=== PATIENT | female | born 1990 | race Caucasian/White ===

== ENCOUNTER 2021-04-08 12:30 | Outpatient (CLI) | payer MEDICAID | END 2021-04-08 12:31 | disposition home or self-care (01) | LOC: BICCT 12:30 | PROVIDERS: ATTEND Student in an Organized Health Care Education/Training Program | DX: R22.1 Localized swelling, mass and lump, neck (principal) | CPT/HCPCS: 70491 ==

== ENCOUNTER 2021-07-06 06:08 | Day surgery (SDC) | payer OTHER ==
[2021-07-01 14:32] VITALS: BMI 35.7
[2021-07-06] MEDS ORDERED: Meperidine HCl/PF 25 MG/ML VIAL ONE ×2 (06:28→08:17)
[2021-07-06] MEDS ORDERED: Famotidine/PF 20 mg/2ml Vial ONE (06:28)
[2021-07-06] MEDS ORDERED: Fentanyl 100 MCG/2 ML VIAL ONE ×2 (06:28→08:35)
[2021-07-06] MEDS ORDERED: Ondansetron PF 4 MG/2 ML Vial ONE (07:34)
[2021-07-06] MEDS ORDERED: Metoclopramide HCl 10 MG/2 ML VIAL ONE (07:34)
[2021-07-06] MEDS ORDERED: Ketorolac Tromethamine 30 MG/ML VIAL ONE (07:34)
[2021-07-06] MEDS ORDERED: Dexamethasone 20 MG/5 ML VIAL ONE (07:34)
[2021-07-06] MEDS ORDERED: PROPOFOL 200 MG/20 ML VIAL ONE (07:34)
[2021-07-06] MEDS ORDERED: Lidocaine 1% PF 5 ML VIAL ONE (07:34)
[2021-07-06] MEDS ORDERED: HYDROcodone/Acetaminophen 5/325 mg Tablet ONE (09:22)
== END 2021-07-06 10:03 | disposition home or self-care (01) ==
LOC: SDC 06:08
PROVIDERS: ATTEND Student in an Organized Health Care Education/Training Program
PROC: 0CTPXZZ Resection of Tonsils, External Approach (ICD-10-PCS; principal; 2021-07-06)
DX: J03.91 Acute recurrent tonsillitis, unspecified (principal); J35.01 Chronic tonsillitis; J30.9 Allergic rhinitis, unspecified; Z79.899 Other long term (current) drug therapy
CPT/HCPCS: 88304; J1100; J1885; J2175; J2405; J2704; J2765; J3010; S0028

== ENCOUNTER 2022-02-22 11:00 | Outpatient (CLI) | payer OTHER | END 2022-02-22 11:01 | disposition home or self-care (01) | LOC: PET 11:00 | PROVIDERS: ATTEND Family Medicine | DX: R22.2 Localized swelling, mass and lump, trunk (principal) | CPT/HCPCS: 78815; A9552 ==

== ENCOUNTER 2022-10-04 18:01 | Emergency (ER) | payer OTHER ==
[2022-10-04] MEDS ORDERED: Enoxaparin Sodium 100 MG/ML SYRINGE ONE (18:37)
[2022-10-04] MEDS ORDERED: Meclizine HCl 25 MG TAB ONE (18:37)
[2022-10-04] MEDS ORDERED: Metoclopramide HCl 10 MG/2 ML VIAL ONE (18:37)
[2022-10-04] MEDS ORDERED: Ketorolac Tromethamine 30 MG/ML VIAL ONE (18:37)
[2022-10-04] MEDS ORDERED: Dexamethasone 10 MG/ML VIAL ONE (18:37)
[2022-10-04 19:52] LABS: #Basophils 0.1 thou/uL (0.0-0.2); #Eosinphils 0.1 thou/uL (0.0-0.7); #Monocytes 0.6 thou/uL (0.11-0.59); #Neutrophils 6.8 thou/uL (1.40-6.50); %Basophils 0.9 % (0.0-1.0); %Eosinophils 1.3 % (0.0-10.0); %Lymphocytes 28.1 % (21.0-51.0); %Monocytes 5.6 % (0.0-10.0); Hemoglobin 13.5 g/dL (12.0-16.0); Mean Corpuscular HGB CONC 33.7 g/dL (32.0-36.0); Mean Corpuscular Volume 95.2 fl (78.0-98.0); Mean Platelet Volume 6.4 fL (7.4-10.4); Platelet Count 298 10x3/uL (130-400); RBC Distribution Width 11.2 % (11.5-14.5); Red Blood Cell (RBC) Count 4.21 mill/uL (4.20-5.40); White Blood Cell (WBC) Count 10.6 10x3/uL (4.8-10.8)
[2022-10-04 19:58] LABS: BHCG - Serum Negative (NEGATIVE); Pregs Control Background? CLEAR/WHITE (CLR/WHITE); Pregs Control Bar Appear? YES (CONTROL BAR)
[2022-10-04 20:13] LABS: ALT (SGPT) 9 U/L (8-55); AST (SGOT) 15 U/L (5-34); Albumin 4.4 g/dL (3.5-5.0); Alkaline Phosphatase 120 U/L (40-110); Anion Gap 15 mmol/L (10-20); BUN (Urea Nitrogen) 8 mg/dL (7.0-18.7); Bilirubin, Total 1.1 mg/dL (0.2-1.2); Calc. Creatinine Clearance 0 mL/min (70-130); Calcium 8.7 mg/dL (7.8-10.44); Carbon Dioxide 23 mmol/L (22-29); Chloride 101 mmol/L (98-107); Estimated GFR 93; Globulin 2.7 g/dL (2.4-3.5); Glucose 84 mg/dL (70-105); Lipase 71 U/L (8-78); Potassium 3.5 mmol/L (3.5-5.1); Protein, Total 7.1 g/dL (6.0-8.3); Sodium 135 mmol/L (136-145)
== END 2022-10-04 20:42 | disposition home or self-care (01) ==
LOC: ERS 18:01
DX: H81.4 Vertigo of central origin (principal); E78.00 Pure hypercholesterolemia, unspecified; Z79.899 Other long term (current) drug therapy
CPT/HCPCS: 36415; 70450; 80053; 83690; 84703; 85025; 93005; 96374; 96375; J1100; J1650; J1885; J2765

== ENCOUNTER 2023-01-27 12:39 | Outpatient (CLI) | payer OTHER | END 2023-01-27 12:40 | disposition home or self-care (01) | LOC: BICRAD 12:39 | PROVIDERS: ATTEND Preventive Medicine Occupational Medicine | DX: J96.10 Chronic respiratory failure, unspecified whether with hypoxia or hypercapnia (principal) | CPT/HCPCS: 71046 ==

== ENCOUNTER 2024-09-10 22:35 | Emergency (ER) | payer SELFPAY ==
[2024-09-11 00:58] LABS: #Basophils 0.05 10x3/uL (0.0-0.2); %Basophils 0.3 % (0.0-1.0); %Eosinophils 0.9 % (0.0-10.0); %Lymphocytes 6.2 % (21.0-51.0); %Monocytes 5.8 % (0.0-10.0); %Neutrophils 86.2 % (42.0-75.0); Hematocrit 41.9 % (36.0-47.0); Hemoglobin 14.3 g/dL (12.0-16.0); Mean Corpuscular HGB CONC 34.1 g/dL (32.0-36.0); Mean Corpuscular Hemoglobin 31.2 pg (27.0-31.0); Mean Corpuscular Volume 91.3 fL (78.0-98.0); Mean Platelet Volume 8.5 fL (7.4-10.4); Platelet Count 308 10x3/uL (130-400); RBC Distribution Width 12.4 % (11.5-14.5); Red Blood Cell (RBC) Count 4.59 mill/uL (4.20-5.40)
[2024-09-11 01:10] LABS: BHCG - Serum Negative (NEGATIVE); Pregs Control Background? CLEAR/WHITE (CLR/WHITE); Pregs Control Bar Appear? YES (CONTROL BAR)
[2024-09-11 01:16] LABS: ALT (SGPT) 14 U/L (8-55); AST (SGOT) 18 U/L (5-34); Albumin 4.2 g/dL (3.5-5.0); Alkaline Phosphatase 122 U/L (40-110); Anion Gap 17 mmol/L (10-20); BUN (Urea Nitrogen) 16 mg/dL (7.0-18.7); Bilirubin, Total 1.2 mg/dL (0.2-1.2); Calc. Creatinine Clearance 0 mL/min (70-130); Carbon Dioxide 22 mmol/L (22-29); Chloride 103 mmol/L (98-107); Estimated GFR 82; Glucose 107 mg/dL (70-105); Lipase 31 U/L (8-78); Protein, Total 7.2 g/dL (6.0-8.3); Sodium 138 mmol/L (136-145)
[2024-09-11 01:21] LABS: Troponin I Less than 0.010 ng/mL (< 0.028)
[2024-09-11 01:30] LABS: Bilirubin Negative (Negative); Blood, Urine Negative (Negative); CAUTI Indications for Culture Dysuria,urgency,freq; Clarity Turbid (Clear); Glucose, Urine (Dipstick) Normal (Negative); Ketone, Urine Negative (Negative); Leukocyte Negative Leu/uL (Negative); Nitrite Negative (Negative); Protein, Urine (Dipstick) 20 mg/dL (Neg-Trace); RBC/HPF 0-3 HPF (0-3); Specific Gravity, Urine 1.033 (1.002-1.036); Squamous Epithelial 21-50 HPF (0-3); Urobilinogen Normal mg/dL (Less than 2); WBC/HPF 0-3 HPF (0-3); pH, Urine 5.5 (5.0-9.0)
[2024-09-11 01:31] LABS: Bacteria/HPF 1+ HPF (None Seen); Urine Culture Reflex No No
[2024-09-11] MEDS ORDERED: Ondansetron PF 4 MG/2 ML Vial ONE (01:40)
== END 2024-09-11 07:30 | disposition home or self-care (01) ==
LOC: ERS 22:35
DX: K50.90 Crohn's disease, unspecified, without complications (principal); Z90.49 Acquired absence of other specified parts of digestive tract
CPT/HCPCS: 36415; 71045; 74177; 80053; 81001; 83605; 83690; 84484; 84703; 85025; 93005; 96361; 96374; 96375; J2405

== ENCOUNTER 2025-06-13 10:49 | Emergency (ER) | payer OTHER, SELFPAY ==
[2025-06-13] MEDS ORDERED: Ketorolac Tromethamine 30 MG (1 mL) VIAL ONE (12:09)
== END 2025-06-13 12:27 ==
LOC: ERS 10:49
DX: M54.2 Cervicalgia (principal); M26.601 Right temporomandibular joint disorder, unspecified; E66.9 Obesity, unspecified
CPT/HCPCS: 96372; 99282; J1885